=== PATIENT | male | born 1980 | race Two or more races ===

== ENCOUNTER 2017-07-16 12:52 | Emergency (ER) | payer SELFPAY ==
[~2017-07-16] VITALS: Ht 175.3 cm; Wt 83.9 kg
[2017-07-16 13:05] VITALS: BP 104/63
== END 2017-07-16 14:48 | disposition home or self-care (01) ==
LOC: ER 12:52 → EDBD 12:52 → ER 14:48
DX: T40.1X1A Poisoning by heroin, accidental (unintentional), initial encounter (principal); F11.20 Opioid dependence, uncomplicated; Y92.89 Other specified places as the place of occurrence of the external cause